=== PATIENT | male | born 1980 | race Caucasian/White ===

== ENCOUNTER 2019-11-22 16:30 | Inpatient (IN) | payer OTHER ==
[~2019-11-22] VITALS: Ht 195.6 cm; Wt 85.1 kg
[~2019-11-22 16:30] MED LIST: AMOXICILLIN 50500 MG PO; MULTI VITAMINS1 TAB PO; NORCO 325 MG-51 TAB PO; ONE DAILY1 TA1 PO; PEN-VEE K500 MG PO; PERCOCET 325 MG1 TA2 PO
[2019-11-22] MEDS ORDERED: IBU800 M1 PO (16:36)
[2019-11-22 20:01] LABS: BASO # 0.1 (0.0-0.2); BASO % 0.4 % (0.0-2.0); EOS # 0.1 (0.0-0.7); EOS % 0.5 % (0-4.0); GRAN # 9.3 (1.4-6.5); GRAN % 78.1 % (42.2-75.2); HEMATOCRIT 41.5 % (42.0-52.0); HEMOGLOBIN 13.9 g/dl (13.5-18.0); LYMPH # 1.8 (1.2-3.4); LYMPH % 14.7 % (20.0-51.0); MEAN CELL VOLUME 86 fl (80.0-100.0); MEAN CORPUSCULAR HEMOGLOBIN 29 pg (27.0-31.0); MEAN CORPUSCULAR HGB CONC 34 g/dl (33.0-37.0); MEAN PLATELET VOLUME 11.1 fl (7.4-10.4); MONO # 0.7 (0.1-0.6); PLATELET COUNT 208 K/mm3 (130-400); RED BLOOD COUNT 4.83 M/mm3 (4.20-5.60); REDCELL DISTRIBUTION WIDTH-CV 12.2 % (11.5-14.5)
[2019-11-22 20:09] LABS: COLLECTION METHOD CLEAN CATCH
[2019-11-22 20:12] LABS: ALANINE AMINOTRANSFERASE 43 U/L (4-49); ALBUMIN 4.3 gm/dL (3.5-5.0); ALKALINE PHOSPHATASE 55 U/L (50-136); ANION GAP 10 mmol/L (7-16); AST,SGOT 34 U/L (15-37); BILIRUBIN,TOTAL 0.7 mg/dL (0.0-1.0); BLOOD UREA NITROGEN 19 mg/dL (9-20); C-REACTIVE PROTEIN < 0.5 mg/dL (0.0-0.9); CALCIUM 9.2 mg/dL (8.4-10.2); CARBON DIOXIDE 22 mmol/L (22-30); CHLORIDE 104 mmol/L (98-107); CREATININE, serum 0.91 (0.66-1.25); GLUCOSE 108 mg/dL (74-106); POTASSIUM 3.8 mmol/L (3.4-5.0); SODIUM 136 mmol/L (137-145); TOTAL PROTEIN 7.8 gm/dL (6.4-8.2)
[2019-11-22 20:15] LABS: PH 5 (5-8); SQUAMOUS EPITHELIAL None Seen /hpf; URINE APPEARANCE Clear; URINE BACTERIA None Seen /hpf; URINE BILIRUBIN Negative (NEGATIVE); URINE BLOOD Negative (NEGATIVE); URINE COLOR Straw; URINE GLUCOSE Negative (NEGATIVE); URINE KETONE Negative (NEGATIVE); URINE LEUKOCYTE ESTERASE Negative (NEGATIVE); URINE NITRATE Negative (NEGATIVE); URINE PROTEIN(semi-quant) Negative (NEGATIVE); URINE RBC None Seen /hpf; URINE UROBILINOGEN Negative (NEGATIVE)
[2019-11-22] MEDS ORDERED: MULTI VITAMINS1 TAB PO (21:50)
[2019-11-22] MEDS ORDERED: TURMERIC500 MG PO (21:50)
[2019-11-22 22:20] VITALS: BP 149/102; PULSE 73; TEMP 97.6
--- NOTE | 2019-11-22 23:19 | NUR ---
Rating pain 8/10 in left hip. Provided with PRN norco at this time.
[2019-11-23] VITALS (7 sets, daily range): BP systolic 127–157; BP diastolic 75–102; PULSE 73–85; TEMP 97.6–98.3
--- NOTE | 2019-11-23 05:50 | NUR ---
Reports 9/10 left hip pain. Provided with PRN gino at this time.
--- NOTE | 2019-11-23 06:17 | NUR ---
Patient called stating pain in climbing. Requested some else for pain. Provided with PRN dilaudid. Patient moan, stating vulgar terms, grasping sheets. Reports pain resolved within 5 minutes of dilaudid administration. Denies other needs at this time.
--- NOTE | 2019-11-23 06:23 | NUR ---
Patient required norco and dilaudid throughout night for pain control. Resting in bed this AM. Call light in reach.
--- NOTE | 2019-11-23 06:46 | NUR ---
Patient called and stated pain had returned and tearful. Order states to give another dose after 30 mins if unrelieve pain. Provided another 0.5mg of dilaudid at this time. Call light in reach. Will monitor.
--- NOTE | 2019-11-23 06:58 | NUR ---
Report given to NELIA Dean
--- NOTE | 2019-11-23 07:10 | NUR ---
Lying in bed watching his cell phone. Rates pain in back at 8/10, is aware that he just received pain medication and that he will always have some pain. Pain does radiate down legs. Is aware he will have MRI today. Denies additional needs at this time.
[2019-11-23 07:13] LABS: BASO # 0.1 (0.0-0.2); BASO % 0.8 % (0.0-2.0); EOS # 0.3 (0.0-0.7); EOS % 3.3 % (0-4.0); GRAN % 50.7 % (42.2-75.2); HEMATOCRIT 39.9 % (42.0-52.0); HEMOGLOBIN 13.4 g/dl (13.5-18.0); LYMPH # 2.7 (1.2-3.4); LYMPH % 34.6 % (20.0-51.0); MEAN CELL VOLUME 87 fl (80.0-100.0); MEAN CORPUSCULAR HEMOGLOBIN 29 pg (27.0-31.0); MEAN CORPUSCULAR HGB CONC 34 g/dl (33.0-37.0); MEAN PLATELET VOLUME 11.4 fl (7.4-10.4); MONO # 0.8 (0.1-0.6); MONO % 10.3 % (1.7-9.3); PLATELET COUNT 216 K/mm3 (130-400); RED BLOOD COUNT 4.61 M/mm3 (4.20-5.60); REDCELL DISTRIBUTION WIDTH-CV 12.7 % (11.5-14.5)
[2019-11-23 07:28] LABS: CALCIUM 9.2 mg/dL (8.4-10.2); CREATININE, serum 0.96 (0.66-1.25); POTASSIUM 4.1 mmol/L (3.4-5.0)
--- NOTE | 2019-11-23 09:40 | NUR ---
Worship Leader met with patient to discuss discharge planning. Patient lives in [place] with a roommate, Varghese. Patient listed his brother, Syd (ph#[phone]) as emergency contact. Patient does not have primary care set up at this time and reports he has been trying to apply for insurance coverage. During intake interview, Hospitalist came in for rounds and advised they would be looking at transfer to [facility] today. SW sent update email to Dara, Financial Counselor as patient is self pay. SW to continue to follow as needed.
--- NOTE | 2019-11-23 11:01 | NUR ---
Patient rating pain in back 10/10, radiates down legs. Requests pain medication. Administered Dilaudid as prescribed.
--- NOTE | 2019-11-23 11:56 | NUR ---
Continues to rate pain 9/10 in low back, would like pain medication. [place] administered as prescribed. Patient lying in bed in supine position trying to get into comfortable position and also eat lunch. Denies further needs.
--- NOTE | 2019-11-23 12:38 | NUR ---
Patient to CT scan via wheelchair with CT staff for TRAVIS.
--- NOTE | 2019-11-23 13:08 | NUR ---
Patient returns from CT via wheel chair.
--- NOTE | 2019-11-23 14:41 | NUR ---
Patient concerned because he is having "numbness in scrotum and taint." Explained to the patient that I would check with the provider to see if this is to be expected. Explained that they do inject some numbing medication but we will make sure this is okay. Spoke with NORM Dean, and she recommends that we contact the provider in radiology. Contacted radiology and spoke with David and it is confirmed with the provider that they injected Marcaine with the Kenalog and the Marcaine can take up to 6-12 hours to wear off. If still numb at that time to let them know. Will update the patient.
--- NOTE | 2019-11-23 15:04 | NUR ---
Rating pain in low back 7-8/10, describes as stabbing that radiates into legs making ankles feel like they are being smashed. Requests pain medication. Dilaudid administered as prescribed.
--- NOTE | 2019-11-23 15:48 | NUR ---
Rates pain 5/10 in low back. Remains lying in bed, talking on cell phone. Denies further needs at this time.
--- NOTE | 2019-11-23 17:55 | NUR ---
Pain in back starting to increase, rates 7/10, radiating into legs. Would like pain medication. Administered [place] as prescribed.
[2019-11-24 03:22] VITALS: BP 144/86; PULSE 86; TEMP 97.6
--- NOTE | 2019-11-24 03:42 | NUR ---
Patient laying flat on back requesting pain medication. Upon reassessment patient requested to get up and walk to the rest room. Alma was able to accomplish this with stand by assist. Patient was given an additional dose of pain medication before going to bed. Patient has rested in bed with eyes closed most of the shift. Patient has not comlained of any nausea or vomiting. Pain mangement has been one dose of dilaudid and one tab of 7.5 hydrocodone.
--- NOTE | 2019-11-24 07:27 | NUR ---
Patient lying in bed with eyes open. Patient says that he was able to sleep last night. Rates pain 7/10 in low back that radiates into legs, would like pain medication. Discussed with the patient that we need to try today to transition only to oral pain medication and use the IV pain med sparingly as he will not be able to use IV pain medication at home. Patient verbalizes understanding and agreeance to this. Patient has goals today of trying to see what his MRI looked like, working with PT, and discussing pain management options when he goes home. Patient says that he wants to make sure that what he will be taking at home will be effective and that he will not get extreme pain at home and end up coming back to the hospital. Explain to the patient that I will get his pain medication at this time. Patient denies further needs.
[2019-11-24 07:35] VITALS: BP 154/89; PULSE 71; TEMP 97.7
--- NOTE | 2019-11-24 07:38 | NUR ---
[place] administered as prescribed. Patient eating breakfast at this time.
--- NOTE | 2019-11-24 09:08 | NUR ---
Patient continues to have pinching pain to where he cannot get comfortable. Administered second [place] as prescribed. PT in room and patient says that he is not able to get out of bed at this time due to the pain. They will connect patient to TENS unit machine to see if this helps. Patient denies further needs at this time.
--- NOTE | 2019-11-24 10:11 | NUR ---
Lying in bed with eyes open. Rates pain 5/10. Is connected to the TENS unit at this time. Says that he feels like it is helping and will look at purchasing one. Denies additional needs at this time.
--- NOTE | 2019-11-24 10:24 | NUR ---
Ambulating in halls with PT. Gait slow and steady. Patient says that he has some shooting pains down his left leg.
[2019-11-24 11:21] VITALS: BP 143/87; PULSE 73; TEMP 97.7
--- NOTE | 2019-11-24 11:25 | NUR ---
First visit from the knitter operator. prayed with patient. No other needs right now.
--- NOTE | 2019-11-24 11:42 | NUR ---
Rating pain in low back 6/10, radiates into legs. Patient requests pain medication. Will administer [place] as prescribed. Patient lying in bed eating lunch. Denies further needs at this time.
--- NOTE | 2019-11-24 13:43 | NUR ---
Ambulate with patient in halls. Gait slow and steady. Patient verbalizes that it felt good to be up walking, still had some shooting pains down legs but better than before. Patient returns to room. Denies further needs at this time.
--- NOTE | 2019-11-24 15:00 | NUR ---
Special Procedures Nurse attended clinical rounds with the team. Hospitalist spoke with patient and advised they will not pursue emergent surgery at this time and patient verbalized understanding. Patient to discharge tomorrow. OT's eval yesterday recommended post acute rehab. Patient walked 100 ft with therapy today and recommendation is for home. SW followed up with patient who states he plans to return home tomorrow with support from his roommate and his girlfriend, Jaimee. Patient states he has a good support system. Patient also reports he has a shower chair to assist with bathing. Patient is interested in setting up primary care. Orit is pending Medicaid and disability. VINCENT is agreeable to having an appointment set up at [facility] in [place]. VINCENT scheduled appointment for 11/29/19 @ 1100 with an arrival time of 1030. VINCENT provided appointment date and time to patient and advised he needs to bring photo ID, proof on income, and proof of address. VINCENT also provided appointment time to RNCrystal who added appointment to patient's discharge information. VINCENT to continue to follow.
[2019-11-24 15:34] VITALS: BP 143/88; PULSE 78; TEMP 97.9
--- NOTE | 2019-11-24 16:02 | NUR ---
Rating pain 7/10 in low back, radiates to legs, describes as sharp and pinching. Administered [place] as prescribed per patient request. Patient says that today is the first day he has been able to walk and stand and he feels pretty good. Patient denies further needs at this time.
--- NOTE | 2019-11-24 17:15 | NUR ---
Patient ambulates in halls with girlfriend. Gait slow and steady. Patient voices no further needs at this time. Returned to room when done walking to eat dinner.
[2019-11-24 19:28] VITALS: BP 162/88; PULSE 100; TEMP 97.9
[2019-11-24 23:37] VITALS: BP 141/88; PULSE 74; TEMP 97.5
[2019-11-25 03:44] VITALS: BP 130/76; PULSE 83; TEMP 97.7
--- NOTE | 2019-11-25 03:57 | NUR ---
Patient has rested well throughout the night. Pain medication given as ordered and requrested. Patient's pain level has not dropped below at 7/10. PRN tizanidine given as well. Patient ordered delivery at about 2300. Patient ate 100%. Patient then slept well after this. Denies any further needs. Independent in room. Will continue to monitor.
[2019-11-25 07:36] VITALS: BP 138/80; PULSE 70; TEMP 97.8
--- NOTE | 2019-11-25 09:00 | NUR ---
Patient resting in bed at this time, patient is alert and oriented, answers questions appropriately. Patient requests PRN pain medication for pain in his left hip rated 7/10. Has been up walking with therapy in the halls this morning and preformed hygine independently. Patient denies needs at this time, call light within reach.
[2019-11-25] MEDS ORDERED: ZANAFLEX 4MG TAB4 MG PO (09:53)
[2019-11-25] MEDS ORDERED: NEURONTIN600 MG/TAB PO (09:54)
[2019-11-25] MEDS ORDERED: ROXICODONE 55 MG/TAB PO (09:56)
[2019-11-25] MEDS ORDERED: PREDNISONE20 MG PO (09:56)
--- NOTE | 2019-11-25 12:37 | NUR ---
Discharge teaching completed. Discussed discharge medications, instructions, and follow up appointments. Patient denied questions or concerns. INT removed, catheter intact, hemostasis achieved. Patient escorted to ED entrance where he entered a private vehicle.
== END 2019-11-25 12:37 | disposition home or self-care (01) | DRG 552 ==
LOC: COL.ER 16:30 → SURG 19:23
PROVIDERS: Emergency Medicine; Physician Assistant; ADMIT Internal Medicine
PROC: 3E0R33Z Introduction of Anti-inflammatory into Spinal Canal, Percutaneous Approach (ICD-10-PCS; principal; 2019-11-23)
DX: M51.27 Other intervertebral disc displacement, lumbosacral region (principal); I10 Essential (primary) hypertension; D72.829 Elevated white blood cell count, unspecified; W11.XXXA Fall on and from ladder, initial encounter; M54.30 Sciatica, unspecified side; F17.210 Nicotine dependence, cigarettes, uncomplicated
CPT/HCPCS: 99222-AI; 99232-AI; 99233-AI; 99239; A9585; J1170; J1885; J3010; J3301; J7030; J7512

== ENCOUNTER → 2020-01-18 | Outpatient (CLI) | payer OTHER ==
[~2020-01-18] MED LIST changes: +IBU800 M1 PO; +NEURONTIN600 MG/TAB PO; +PREDNISONE20 MG PO; +ROXICODONE 55 MG/TAB PO; +TURMERIC500 MG PO; +ZANAFLEX 4MG TAB4 MG PO
== END ==
LOC: MHCPAIN 09:58
DX: M47.817 Spondylosis without myelopathy or radiculopathy, lumbosacral region (principal); M96.1 Postlaminectomy syndrome, not elsewhere classified; M54.5 Low back pain
CPT/HCPCS: G0463

== ENCOUNTER → 2020-02-02 | Outpatient (CLI) | payer OTHER | LOC: MHCPAIN 07:46 | DX: M47.817 Spondylosis without myelopathy or radiculopathy, lumbosacral region (principal); M54.5 Low back pain; M53.3 Sacrococcygeal disorders, not elsewhere classified | CPT/HCPCS: J1100; Q9967 ==

== ENCOUNTER 2020-02-06 10:00 | Outpatient (RCR) | payer OTHER | END 2020-04-02 | disposition home or self-care (01) | LOC: WSPT | DX: M54.40 Lumbago with sciatica, unspecified side (principal); M51.9 Unspecified thoracic, thoracolumbar and lumbosacral intervertebral disc disorder ==

== ENCOUNTER → 2020-02-13 | Outpatient (CLI) | payer OTHER | LOC: MHCPAIN 08:54 | DX: M47.817 Spondylosis without myelopathy or radiculopathy, lumbosacral region (principal); M54.5 Low back pain; M96.1 Postlaminectomy syndrome, not elsewhere classified; M53.3 Sacrococcygeal disorders, not elsewhere classified; G89.29 Other chronic pain | CPT/HCPCS: G0463 ==

== ENCOUNTER → 2020-02-16 | Outpatient (CLI) | payer OTHER | LOC: MHCPAIN 08:15 | DX: M47.817 Spondylosis without myelopathy or radiculopathy, lumbosacral region (principal); M54.5 Low back pain; M54.16 Radiculopathy, lumbar region | CPT/HCPCS: J1100; Q9967 ==

== ENCOUNTER → 2020-02-28 | Outpatient (CLI) | payer OTHER | LOC: MHCPAIN 13:55 | DX: M47.817 Spondylosis without myelopathy or radiculopathy, lumbosacral region (principal); M96.1 Postlaminectomy syndrome, not elsewhere classified; M54.5 Low back pain; G89.29 Other chronic pain; M54.16 Radiculopathy, lumbar region | CPT/HCPCS: G0463 ==

== ENCOUNTER → 2020-08-27 | Outpatient (CLI) | payer SELFPAY | LOC: MHCPAIN 10:05 | DX: M47.817 Spondylosis without myelopathy or radiculopathy, lumbosacral region (principal); M53.3 Sacrococcygeal disorders, not elsewhere classified; M96.1 Postlaminectomy syndrome, not elsewhere classified; G89.29 Other chronic pain | CPT/HCPCS: G0463 ==

== ENCOUNTER → 2020-10-22 | Outpatient (CLI) | payer SELFPAY | LOC: MHCPAIN 09-06 11:20 | DX: M47.817 Spondylosis without myelopathy or radiculopathy, lumbosacral region (principal); M54.16 Radiculopathy, lumbar region; M96.1 Postlaminectomy syndrome, not elsewhere classified; G89.29 Other chronic pain | CPT/HCPCS: G0463; J1100; Q9967 ==

== ENCOUNTER → 2021-01-29 | Outpatient (CLI) | payer SELFPAY | LOC: MHCPAIN 10:45 | DX: M47.817 Spondylosis without myelopathy or radiculopathy, lumbosacral region (principal); M54.16 Radiculopathy, lumbar region; M53.3 Sacrococcygeal disorders, not elsewhere classified; M96.1 Postlaminectomy syndrome, not elsewhere classified | CPT/HCPCS: G0463 ==

== ENCOUNTER → 2021-02-11 | Outpatient (CLI) | payer SELFPAY | LOC: MHCPAIN 02-04 13:02 | DX: M47.817 Spondylosis without myelopathy or radiculopathy, lumbosacral region (principal); M54.16 Radiculopathy, lumbar region; M53.3 Sacrococcygeal disorders, not elsewhere classified | CPT/HCPCS: J1100; Q9967 ==

== ENCOUNTER → 2022-04-28 | Outpatient (CLI) | payer SELFPAY ==
[~2022-04-28] MED LIST changes: +KLONOPIN 0.5MG0.5 MG PO; +VALTREX1 GM PO
== END ==
LOC: MHCPAIN 08:35
DX: M47.897 Other spondylosis, lumbosacral region (principal); M54.16 Radiculopathy, lumbar region; M53.3 Sacrococcygeal disorders, not elsewhere classified
CPT/HCPCS: G0463; J1100; Q9967

== ENCOUNTER 2022-08-04 14:47 | Emergency (ER) | payer SELFPAY ==
[~2022-08-04] VITALS: Ht 195.6 cm; Wt 92.7 kg
[2022-08-04 16:23] LABS: BASO # 0.1 K/mm3 (0.0-0.2); EOS # 0.1 K/mm3 (0.0-0.7); EOS % 2.2 % (0.0-4.0); GRAN # 2.7 K/mm3 (1.4-6.5); GRAN % 46.8 % (42.2-75.2); HEMATOCRIT 44.7 % (42.0-52.0); HEMOGLOBIN 15.2 g/dl (13.5-18.0); LYMPH # 2.5 K/mm3 (1.2-3.4); LYMPH % 42.6 % (20.0-51.0); MEAN CELL VOLUME 89 fl (80.0-100.0); MEAN CORPUSCULAR HEMOGLOBIN 30 pg (27-31); MEAN CORPUSCULAR HGB CONC 34 g/dl (33.0-37.0); MEAN PLATELET VOLUME 10.6 fl (7.4-10.4); MONO # 0.4 K/mm3 (0.1-0.6); MONO % 7.2 % (1.7-9.3); PLATELET COUNT 271 K/mm3 (130-400); RED BLOOD COUNT 5.05 M/mm3 (4.20-5.60); REDCELL DISTRIBUTION WIDTH-CV 13.5 % (11.5-14.5)
--- NOTE | 2022-08-04 16:23 | NUR ---
Patient brought here for etho detox by patients brother. Patient is agreeable to going to the [facility] for inpatient treatment but will need [place] screen prior. Alcohol resource list provided to patient. Emotional support provided
[2022-08-04 16:37] LABS: ALANINE AMINOTRANSFERASE 31 U/L (0-55); ALBUMIN 4.6 gm/dL (3.5-5.0); ALCOHOL(ethanol),MEDICAL 277 mg/dL (0-10); ALKALINE PHOSPHATASE 56 U/L (40-150); ANION GAP 12 mmol/L (7-16); AST,SGOT 32 U/L (5-34); BILIRUBIN,TOTAL 0.3 mg/dL (0.2-1.2); BLOOD UREA NITROGEN 11 mg/dL (9-21); CALCIUM 9.3 mg/dL (8.4-10.2); CARBON DIOXIDE 22 mmol/L (22-29); CHLORIDE 112 mmol/L (98-107); CREATININE, serum 0.93 mg/dL (0.72-1.25); GLUCOSE 108 mg/dL (70-99); SODIUM 146 mmol/L (136-145); TOTAL PROTEIN 8.3 gm/dL (6.2-8.1)
[2022-08-04 16:38] LABS: ACETAMINOPHEN < 1.0 ug/mL (10-30); SALICYLATE < 5.0 mg/dL (15.0-30.0)
[2022-08-04 16:57] LABS: TSH w REFLEX 0.362 uIU/mL (0.350-4.940)
[2022-08-04 18:19] LABS: COLLECTION METHOD CLEAN CATCH
[2022-08-04 18:27] LABS: URINE APPEARANCE Clear (CLEAR/HAZY); URINE BLOOD Negative (NEGATIVE); URINE COLOR Yellow (YELLOW); URINE GLUCOSE Negative (NEGATIVE); URINE KETONE Negative (NEGATIVE); URINE NITRATE Negative (NEGATIVE); URINE PROTEIN(semi-quant) Negative (NEGATIVE); URINE UROBILINOGEN 0.2 E.U/dL (0.2-1.0)
[2022-08-04 18:30] LABS: MUCOUS Present (NOT PRESENT); SQUAMOUS EPITHELIAL 0-2 /hpf (0-10); URINE BACTERIA None Seen /hpf (NONE SEEN); URINE RBC 0-2 /hpf (0-2)
[2022-08-04 18:41] LABS: TRICYCLIC ANTIDEPRESS URINE NEGATIVE
[2022-08-05 01:39] VITALS: BP 112/72; PULSE 89
== END 2022-08-05 01:43 | disposition home or self-care (01) ==
LOC: COL.ER 14:47
PROVIDERS: Emergency Medicine
DX: F10.20 Alcohol dependence, uncomplicated (principal); Y90.3 Blood alcohol level of 60-79 mg/100 ml; Z87.820 Personal history of traumatic brain injury; Z28.310 Unvaccinated for COVID-19
CPT/HCPCS: J3411; J7120

== ENCOUNTER → 2023-06-25 | Outpatient (CLI) | payer BC | LOC: MHCPAIN 13:54 | DX: M47.817 Spondylosis without myelopathy or radiculopathy, lumbosacral region (principal) | CPT/HCPCS: J1100; Q9967 ==

== ENCOUNTER → 2024-02-01 | Outpatient (CLI) | payer BC ==
[~2024-02-01] MED LIST changes: +Iohexol 300 - 10 ML VIAL ONE; +Lidocaine PF 2% (20 MG/ML) 2 ML VIAL ONE
== END ==
LOC: MHCPAIN 12:12
DX: M54.17 Radiculopathy, lumbosacral region (principal); M54.16 Radiculopathy, lumbar region
CPT/HCPCS: J1100; Q9967

== ENCOUNTER → 2024-02-04 | Outpatient (CLI) | payer BC ==
[~2024-02-04] MED LIST changes: -Iohexol 300 - 10 ML VIAL ONE; +Iohexol 300 - 100 ML VIAL IV ONE; -Lidocaine PF 2% (20 MG/ML) 2 ML VIAL ONE; +NS 100 ML IV SCH
== END ==
LOC: COL.RAD 15:00
DX: R59.0 Localized enlarged lymph nodes (principal); R53.83 Other fatigue
CPT/HCPCS: Q9967